=== PATIENT | female | born 1995 | race Caucasian/White ===

== ENCOUNTER 2020-09-28 10:59 | Outpatient (CLI) | payer SELFPAY ==
[~2020-09-28] VITALS: Ht 167.6 cm; Wt 81.8 kg
[2020-09-28 11:30] VITALS: BP 120/72
[2020-09-28] MEDS ORDERED: ASPI-515 PO (11:46)
[2020-09-28] MEDS ORDERED: PREN1TAB10 PO (11:47)
== END 2020-09-28 11:55 | disposition home or self-care (01) ==
LOC: LDOP 10:59
PROVIDERS: ATTEND Obstetrics & Gynecology
DX: O36.5920 Maternal care for other known or suspected poor fetal growth, second trimester, not applicable or unspecified (principal); Z3A.35 35 weeks gestation of pregnancy
CPT/HCPCS: 59025

== ENCOUNTER → 2020-10-12 | Outpatient (CLI) | payer BC ==
[~2020-10-12] MED LIST: ASPI-515 PO; PREN1TAB10 PO
== END | disposition home or self-care (01) ==
LOC: STAR 10:44
PROVIDERS: ATTEND Obstetrics & Gynecology
DX: Z20.828 Contact with and (suspected) exposure to other viral communicable diseases (principal)
CPT/HCPCS: 87635

== ENCOUNTER 2020-10-16 07:58 | Inpatient (IN) | payer BC ==
[~2020-10-16] VITALS: Ht 167.6 cm; Wt 79.0 kg
[2020-10-16] MEDS ORDERED: CALCIUM CARBONATE 500 MG TAB.CHEW PO PRN ×2 (10:00→13:30)
[2020-10-16] MEDS ORDERED: ONDANSETRON 2MG/ML, 2ML IVPush ONE (10:00)
[2020-10-16] MEDS ORDERED: SODIUM CITRATE/CITRIC ACID 30 ML UDC PO ONE (10:00)
[2020-10-16] MEDS ORDERED: LACTATED RINGERS 1,000 ML IVBOLUS ONE (10:00)
[2020-10-16] MEDS ORDERED: METOCLOPRAMIDE 5 MG/ML, 2ML ONE (10:24)
[2020-10-16] MEDS ORDERED: NEWBORN KIT ONE (10:24)
[2020-10-16] MEDS ORDERED: SODIUM CITRATE/CITRIC ACID 15 ML UDC ONE (10:25)
[2020-10-16] MEDS ORDERED: OXYTOCIN 30U/ 0.9% NaCL 500ML 500 ML ONE (10:25)
[2020-10-16 10:30] LABS: BASOPHILS % (AUTO) 0 % (0-1); EOSINOPHILS % (AUTO) 2 % (1-7); LYMPHOCYTES % (AUTO) 18 % (22-44); MEAN CORPUSCULAR HEMOGLOBIN 29.3 pg (27.0-34.8); MEAN CORPUSCULAR HGB CONC 33.4 g/dL (32.4-35.8); MEAN PLATELET VOLUME 9.3 fL (7.4-10.4); MONOCYTES % (AUTO) 6 % (2-9); NEUTROPHILS % (AUTO) 73 % (42-75); PLATELET COUNT 215 x10^3/uL (130-400); RED BLOOD COUNT 4.57 x10^6/uL (3.82-5.3); RED CELL DISTRIBUTION WIDTH 15.7 % (9.6-15.2)
[2020-10-16 10:39] LABS: MD NO
[2020-10-16] MEDS ORDERED: OXYTOCIN 10 UNITS/ML, 1ML ONE (11:40)
[2020-10-16] MEDS ORDERED: CEFAZOLIN 1,000 MG ONE (11:40)
[2020-10-16] MEDS ORDERED: ONDANSETRON 2MG/ML, 2ML ONE (11:40)
[2020-10-16] MEDS ORDERED: FENTANYL PF 100 MCG/2ML ONE (11:41)
[2020-10-16] MEDS ORDERED: HYDROmorphone 2 MG/ML, 1ML ONE ×2 (11:41→13:47)
[2020-10-16] MEDS ORDERED: KETOROLAC 30 MG/1 ML ONE (11:47)
[2020-10-16] MEDS ORDERED: METOCLOPRAMIDE 5 MG/ML, 2ML IV ONE (12:00)
[2020-10-16] MEDS: LACTATED RINGERS 1,000 ML IV SCH ×6 (12:03→23:30)
[2020-10-16] MEDS ORDERED: EPHEDRINE 50 MG/ML, 1ML ONE (12:25)
[2020-10-16] MEDS ORDERED: DEXAMETHASONE 4 MG/ML, 1ML ONE (13:03)
[2020-10-16] MEDS: KETOROLAC 30 MG/1 ML IV SCH ×2 (13:30→19:33)
[2020-10-16] MEDS ORDERED: MORPHINE SULFATE 4 MG/ML, 1ML IVPush PRN (13:30)
[2020-10-16] MEDS: OXYTOCIN 30U/ 0.9% NaCL 500ML 500 ML IV SCH ×2 (13:30→23:30)
[2020-10-16] MEDS ORDERED: ACETAMINOPHEN 325 MG TABLET PO SCH (13:30)
[2020-10-16] MEDS ORDERED: ONDANSETRON 2MG/ML, 2ML IV PRN (13:30)
[2020-10-16] MEDS: IBUPROFEN 600 MG TABLET PO SCH ×2 (13:30→19:30)
[2020-10-16] MEDS ORDERED: BISACODYL 10 MG SUPP PR PRN (13:30)
[2020-10-16] MEDS ORDERED: morphine SULFATE 10 MG/ML, 1ML IM PRN (13:30)
[2020-10-16] MEDS ORDERED: OXYcodone IR 5MG TABLET PO PRN (13:30)
[2020-10-16] MEDS ORDERED: MISOPROSTOL 200 MCG TABLET PR PRN (13:30)
[2020-10-16] MEDS ORDERED: OXYcodone 5 MG/5 ML ORAL.SOL UDC ONE (13:48)
[2020-10-16] MEDS ORDERED: HYDROmorphone 1 MG/ML, 1ML INJ IV ONE (14:00)
[2020-10-16] MEDS ORDERED: OXYcodone 5 MG/5 ML ORAL.SOL UDC PO PRN (14:00)
[2020-10-16 15:30] VITALS: BP 120/72
[2020-10-16] MEDS ORDERED: OXYCODONE MC SCH (15:30)
[2020-10-16] MEDS ORDERED: ACETAMINOPHEN 500 MG TABLET ONE (17:05)
[2020-10-16] MEDS: OXYcodone IR 5MG TABLET PO PRN ×2 (18:27→23:30)
[2020-10-16 20:00] VITALS: BP 115/76
[2020-10-16 20:52] LABS: BASOPHILS % (AUTO) 0 % (0-1); EOSINOPHILS % (AUTO) 0 % (1-7); LYMPHOCYTES % (AUTO) 6 % (22-44); MEAN PLATELET VOLUME 9.7 fL (7.4-10.4); MONOCYTES % (AUTO) 3 % (2-9); NEUTROPHILS % (AUTO) 92 % (42-75); PLATELET COUNT 207 x10^3/uL (130-400); RED CELL DISTRIBUTION WIDTH 15.9 % (9.6-15.2)
[2020-10-16 20:54] LABS: MD NO
[2020-10-16] MEDS: ACETAMINOPHEN 500 MG TABLET PO SCH (23:30)
[2020-10-17] VITALS: BP 118/75
[2020-10-17] MEDS ORDERED: RHOGAM FROM BLOOD BANK 1 NOTE EA IM/IV ONE (00:30)
[2020-10-17] MEDS: IBUPROFEN 600 MG TABLET PO SCH ×4 (01:30→20:04)
[2020-10-17] MEDS: KETOROLAC 30 MG/1 ML IV SCH ×3 (01:30→14:05)
[2020-10-17] MEDS: LACTATED RINGERS 1,000 ML IV SCH ×8 (02:00→21:30)
[2020-10-17 04:00] VITALS: BP 105/69
[2020-10-17] MEDS: OXYcodone IR 5MG TABLET PO PRN ×5 (04:23→21:14)
[2020-10-17] MEDS: ACETAMINOPHEN 500 MG TABLET PO SCH ×5 (05:00→20:04)
[2020-10-17 07:05] VITALS: BP 105/68
[2020-10-17] MEDS: DOCUSATE 100 MG CAPSULE PO PRN ×2 (08:18→20:04)
[2020-10-17] MEDS: PRENATAL VIT/IRON/FA 1 EACH TABLET PO SCH (09:00)
[2020-10-17] MEDS: OXYTOCIN 30U/ 0.9% NaCL 500ML 500 ML IV SCH ×2 (09:30→19:30)
[2020-10-17 19:25] VITALS: BP 124/80
[2020-10-17] MEDS: SIMETHICONE 80 MG CHEW TAB PO PRN (20:04)
[2020-10-18] MEDS: OXYcodone IR 5MG TABLET PO PRN ×3 (01:16→10:38)
[2020-10-18] MEDS: LACTATED RINGERS 1,000 ML IV SCH ×4 (02:00→10:00)
[2020-10-18] MEDS: IBUPROFEN 600 MG TABLET PO SCH ×2 (02:05→08:08)
[2020-10-18] MEDS: ACETAMINOPHEN 500 MG TABLET PO SCH ×2 (02:05→08:08)
[2020-10-18] MEDS: OXYTOCIN 30U/ 0.9% NaCL 500ML 500 ML IV SCH (05:30)
[2020-10-18 07:15] VITALS: BP 122/78
[2020-10-18] MEDS: PRENATAL VIT/IRON/FA 1 EACH TABLET PO SCH (08:08)
[2020-10-18] MEDS: DOCUSATE 100 MG CAPSULE PO PRN (08:08)
[2020-10-18] MEDS: SIMETHICONE 80 MG CHEW TAB PO PRN (10:37)
[2020-10-18] MEDS ORDERED: DOCU-131 PO (10:46)
[2020-10-18] MEDS ORDERED: IBUP-1222 PO (10:47)
[2020-10-18] MEDS ORDERED: OXYC-302 PO (10:48)
== END 2020-10-18 11:50 | disposition home or self-care (01) | DRG 787 ==
LOC: LDIP 09:27 → 2NW 15:36
PROVIDERS: ADMIT Obstetrics & Gynecology; ATTEND Obstetrics & Gynecology
PROC: 10D00Z1 Extraction of Products of Conception, Low, Open Approach (ICD-10-PCS; principal; 2020-10-16)
PROC: 3E0234Z Introduction of Serum, Toxoid and Vaccine into Muscle, Percutaneous Approach (ICD-10-PCS; 2020-10-17)
DX: O34.211 Maternal care for low transverse scar from previous cesarean delivery (principal); O99.354 Diseases of the nervous system complicating childbirth; G43.909 Migraine, unspecified, not intractable, without status migrainosus; J45.909 Unspecified asthma, uncomplicated; O36.5930 Maternal care for other known or suspected poor fetal growth, third trimester, not applicable or unspecified; O26.893 Other specified pregnancy related conditions, third trimester; O99.52 Diseases of the respiratory system complicating childbirth; O69.81X0 Labor and delivery complicated by cord around neck, without compression, not applicable or unspecified; Z3A.37 37 weeks gestation of pregnancy; Z37.0 Single live birth; Z83.3 Family history of diabetes mellitus
CPT/HCPCS: 36415; 85025; 85461; 86592; 86850; 86900; 86923; G0378; J0690; J1100; J1170; J1885; J2405; J2790; J3010; J2590; J2765; J7120